=== PATIENT | male | born 1995 | race Caucasian/White ===

== ENCOUNTER 2017-06-01 09:33 | Emergency (ER) | payer OTHER ==
[2017-06-01] MEDS ORDERED: Ketorolac 60 MG/2 ML SDV IM ONE (09:37)
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
--- NOTE | 2017-06-01 11:01 | CR ---
EXAMINATION: Right shoulder HISTORY: Trauma COMPARISON: None TECHNIQUE: 3 views FINDINGS/IMPRESSION: There is no acute osseous abnormality, dislocation, or fracture. Bone mineraliza tion and joint spaces appear normal.
--- NOTE | 2017-06-01 11:03 | CT ---
EXAMINATION: CT cervical spine HISTORY: Pain COMPARISON: None TECHNIQUE: Axial CT images obtained through the cervical spine without contrast. Coronal and sagittal reconstructions obtained. FINDINGS: The cervical spinal alignment is normal. The vertebral body heights and disc spaces appear well-maintained. There is no fracture or acute osseous abnormality. Bone mineralization and joint spa ariel appear normal. Prevertebral soft tissues are within normal limits. Lung apices are clear. IMPRESSION: 1. No acute cervical spinal abnormality.
== END 2017-06-01 11:24 | disposition home or self-care (01) ==
LOC: MW.ED 09:33
DX: S16.1XXA Strain of muscle, fascia and tendon at neck level, initial encounter (principal); M25.511 Pain in right shoulder; V43.52XA Car driver injured in collision with other type car in traffic accident, initial encounter
CPT/HCPCS: 72125; 73030; 96372; 99284; J1885; 99283